=== PATIENT | male | born 1935 | race Caucasian/White ===

== ENCOUNTER 2018-05-13 14:34 | Outpatient (CLI) | payer MEDICARE ==
--- NOTE | 2018-05-13 16:43 | RAD ---
CHEST 2 VIEWS: Date: 05/13/18 COMPARISON: 02/06/17. HISTORY: Kidney cancer. COMPARISON: None. FINDINGS: Normal cardiac silhouette. Pulmonary vessels and hilum are normal. Costophrenic angles are clear. No consolidation or mass. No pneumothorax or osseous abnormalities. IMPRESSION: No acute cardiopulmonary process. POS: BETH
--- NOTE | 2018-05-13 16:45 | ULT ---
LEFT RENAL ULTRASOUND: Date: 05/13/18 HISTORY: Renal cancer. Right nephrectomy. COMPARISON: 01/27/17, 10/25/15, 10/22/14. TECHNIQUE: Sagittal and transverse imaging of the left kidney is performed. FINDINGS: Limited evaluation of the cortex. No obvious cortical masses. No definite hydronephrosis. Left kidney measures 6.3 x 5.2 x 10.5 cm. Urinary bladder has a normal mucosal appearance. Bladder volume is 38 mL. IMPRESSION: Status post right nephrectomy. No evidence of hydronephrosis in terms of the left kidney. No obvious masses. POS: BETH
== END 2018-05-13 14:35 | disposition home or self-care (01) ==
LOC: BICULT 14:34
PROVIDERS: ATTEND Urology
DX: C64.1 Malignant neoplasm of right kidney, except renal pelvis (principal); Z90.5 Acquired absence of kidney
CPT/HCPCS: 36415; 71046; 76775; 80048; 80076; 81003; 81015; 85025; 87086

== ENCOUNTER 2018-12-30 14:00 | Outpatient (CLI) | payer MEDICARE ==
--- NOTE | 2018-12-30 14:59 | ULT ---
US Renal Lt Unilateral History: Neoplasm of right kidney Comparison: Renal ultrasound April 2018 Findings: Real-time grayscale and color evaluation of the kidneys and urinary bladder was performed. Prior right nephrectomy. Urinary bladder is unremarkable. Left kidney is normal without mass, hydrone phrosis, or abnormal calcifications. Left kidney measures 120.4 x 6.2 x 6.5 cm. Impression: Unremarkable left kidney.
--- NOTE | 2018-12-30 15:00 | RAD ---
XR Chest Pa Lat STANDARD History: Malignant neoplasm of right kidney cc 64.1 Comparison: Radiograph 2018 Findings: Lungs are clear. Calcified granuloma left upper lobe and left lower lobe. No pneumothorax. No effusion. No acute osseous abnormality. Likely chronic Schmorl's node of the anterior superior endplate of what appears to be L1. Impression: No acute intrathoracic abnormality.
== END 2018-12-30 14:01 | disposition home or self-care (01) ==
LOC: BICULT 14:00
PROVIDERS: ATTEND Urology
DX: C64.1 Malignant neoplasm of right kidney, except renal pelvis (principal); R31.29 Other microscopic hematuria
CPT/HCPCS: 36415; 71046; 76775; 80053; 81001; 87077; 87086

== ENCOUNTER 2019-09-17 11:04 | Observation (INO) | payer MEDICARE ==
[2019-09-17 12:05] LABS: Bilirubin Negative (Negative); Blood, Urine 2+ (Negative); Clarity Clear (Clear); Glucose, Urine (Dipstick) Normal (Negative); Leukocyte Negative Leu/uL (Negative); Nitrite Negative (Negative); Protein, Urine (Dipstick) 300 mg/dL (Neg-Trace); RBC/HPF 0-3 HPF (0-3); Squamous Epithelial 0-3 HPF (0-3); Urobilinogen Normal mg/dL (Less than 2); WBC/HPF 0-3 HPF (0-3)
[2019-09-17 12:18] LABS: Bacteria/HPF Rare-Few HPF (None Seen)
[2019-09-17 12:19] LABS: #Eosinphils 0.1 thou/uL (0.0-0.7); #Lymphocytes 1.3 thou/uL (1.20-3.40); #Monocytes 0.6 thou/uL (0.11-0.59); #Neutrophils 6.5 thou/uL (1.40-6.50); %Basophils 0.4 % (0.0-1.0); %Eosinophils 0.6 % (0.0-10.0); %Lymphocytes 15.2 % (21.0-51.0); %Monocytes 6.8 % (0.0-10.0); Hemoglobin 12.3 g/dL (14.0-18.0); Mean Corpuscular HGB CONC 34.8 g/dL (32.0-36.0); Mean Corpuscular Hemoglobin 34.5 pg (27.0-31.0); Mean Corpuscular Volume 99.3 fL (78.0-98.0); Mean Platelet Volume 6.7 fL (7.4-10.4); Platelet Count 229 thou/uL (130-400); RBC Distribution Width 12.2 % (11.5-14.5); Red Blood Cell (RBC) Count 3.57 mill/uL (4.70-6.10); White Blood Cell (WBC) Count 8.4 thou/uL (4.8-10.8)
[2019-09-17 12:47] LABS: ALT (SGPT) 14 U/L (8-55); AST (SGOT) 20 U/L (5-34); Albumin 4.2 g/dL (3.4-4.8); Alkaline Phosphatase 89 U/L (40-110); Anion Gap 16 mmol/L (10-20); BUN (Urea Nitrogen) 56 mg/dL (8.4-25.7); Bilirubin, Total 0.4 mg/dL (0.2-1.2); Calc. Creatinine Clearance 0 mL/min (70-130); Calcium 9.3 mg/dL (7.8-10.44); Carbon Dioxide 18 mmol/L (23-31); Chloride 108 mmol/L (98-107); Estimated GFR-MDRD 15; Globulin 3.1 g/dL (2.4-3.5); Glucose 117 mg/dL (83-110); Potassium 5.4 mmol/L (3.5-5.1); Protein, Total 7.3 g/dL (5.8-8.1); Sodium 137 mmol/L (136-145)
[2019-09-17 13:05] LABS: CKMB 4.7 ng/mL (0-6.6)
[2019-09-17 13:08] LABS: Acetaminophen Less than 6.0 mcg/mL (10.0-30.0); Alcohol Less than 10 mg/dL (Less than 10); Salicylate Less than 8.0 mg/dL (15.0-30.0)
[2019-09-17] MEDS ORDERED: Multivitamins, Adult 10 ML, Thiamine HCl 100 MG, Folic Acid 1 MG in Dextrose 5 %-0.45 %... IV SCH (13:30)
[2019-09-17] MEDS ORDERED: HYDROcodone/Acetaminophen 5/325 mg Tablet ONE (13:46)
--- NOTE | 2019-09-17 13:58 | PDOC.FPRHP ---
- History of Present Illness Chief Complaint: Dysuria, urinary frequency History of Present Illness: PCP: None, CC 84 yo M presents for urinary frequency and ocassional dysuria. Pt has PMH of BPH prescribed flomax that he doesnt take regularly and sees urology OP. He also reports history of renal cell ca s/p nephrectomy, HTN that he irregularly takes norvasc for. Reports symptoms have been present for a week with increasing night time awakening and incomplete emptying sensation with weak stream. He denies hematuria, tea colored urine, fever, chills, DC, abdominal pain. Reports some intermittent NV last episode this am. He has significant alcohol history with reportedly consuming 1 gallon of scotch a week. ED Course: Pt received banana bag and mag sulfate in ED - Allergies/Adverse Reactions Allergies Allergy/AdvReac Type Severity Reaction Status Date / Time diazepam [From Valium] Allergy Severe Verified 09/17/19 15:41 morphine Allergy Verified 09/17/19 15:41 Sulfa (Sulfonamide Allergy Verified 09/17/19 15:41 Antibiotics) - Home Medications Medication Instructions Recorded Confirmed Type Amlodipine [Norvasc] 5 mg PO DAILY 01/18/17 09/17/19 History Tamsulosin HCl [Flomax] 0.4 mg PO DAILY 01/18/17 09/17/19 History cloNIDine HCl 0.2 mg PO DAILY PRN 01/18/17 09/17/19 History Folic Acid/Vit B Comp W-C 1 tab PO DAILY #30 tab 01/21/17 09/17/19 Rx [Nephro-Lisa] - History PMHx: BPH, Renal cell ca s/p nephrectomy, HTN, alcohol abuse PSHx: Nephrectomy FHx: Denies Social: Alcohol abuse 1 gallon of scotch weekly, denies drug and tobacco use - Review of Systems General: denies: fever/chills ENT: denies: nasal congestion, rhinorrhea Respiratory: denies: cough, congestion, shortness of breath Cardiovascular: denies: chest pain, edema Gastrointestinal: reports: nausea, vomiting. denies: diarrhea, constipation, abdominal pain, GI bleeding Genitourinary: reports: dysuria, other (See HPI). denies: incontinence Skin: denies: rashes Musculoskeletal: denies: pain, tenderness Neurological: denies: syncope - Vital signs BP: 187/73 HR: 69 RR: 18 Tmax: 97.8 Pox: 100% on ra Wt: 86Kg - Physical Exam Constitutional: NAD, awake, alert and oriented HEENT: normocephalic and atraumatic, PERRLA, EOMI, conjunctiva clear Neck: supple, trachea midline Heart: RRR, normal S1/S2, no murmurs/rubs/gallops, no edema Lungs: CTAB, no respiratory distress, good air movement, no rales/rhonchi, no wheezing Abdomen: soft, non-tender, bowel sounds present, no masses/distention Musculoskeletal: ROM grossly normal Neurological: no focal deficit Skin: good turgor, no jaundice Psychiatric: normal mood and affect FMR H&P: Results - Labs Result Diagrams: 09/17/19 12:10 09/17/19 12:10 Lab results: WBC 8.4 thou/uL (4.8-10.8) 09/17/19 12:10 Hgb 12.3 g/dL (14.0-18.0) L 09/17/19 12:10 Hct 35.5 % (42.0-52.0) L 09/17/19 12:10 MCV 99.3 fL (78.0-98.0) H 09/17/19 12:10 Plt Count 229 thou/uL (130-400) 09/17/19 12:10 Neutrophils % 77.0 % (42.0-75.0) H 09/17/19 12:10 Sodium 137 mmol/L (136-145) 09/17/19 12:10 Potassium 5.4 mmol/L (3.5-5.1) H 09/17/19 12:10 Chloride 108 mmol/L (98-107) H 09/17/19 12:10 Carbon Dioxide 18 mmol/L (23-31) L 09/17/19 12:10 BUN 56 mg/dL (8.4-25.7) H 09/17/19 12:10 Creatinine 3.83 mg/dL (0.7-1.3) H 09/17/19 12:10 Glucose 117 mg/dL (83-110) H 09/17/19 12:10 Calcium 9.3 mg/dL (7.8-10.44) 09/17/19 12:10 Total Bilirubin 0.4 mg/dL (0.2-1.2) 09/17/19 12:10 AST 20 U/L (5-34) 09/17/19 12:10 ALT 14 U/L (8-55) 09/17/19 12:10 Alkaline Phosphatase 89 U/L (40-110) 09/17/19 12:10 CK-MB (CK-2) 4.7 ng/mL (0-6.6) 09/17/19 12:10 Serum Total Protein 7.3 g/dL (5.8-8.1) 09/17/19 12:10 Albumin 4.2 g/dL (3.4-4.8) 09/17/19 12:10 Urine Ketones Negative mg/dL (Negative) 09/17/19 11:45 Urine Blood 2+ (Negative) A 09/17/19 11:45 Urine Nitrite Negative (Negative) 09/17/19 11:45 Ur Leukocyte Esterase Negative Anselmo/uL (Negative) 09/17/19 11:45 Urine RBC 0-3 HPF (0-3) 09/17/19 11:45 Urine WBC 0-3 HPF (0-3) 09/17/19 11:45 Ur Squamous Epith Cells 0-3 HPF (0-3) 09/17/19 11:45 Urine Bacteria Rare-Few HPF (None Seen) 09/17/19 11:45 - EKG Interpretation EKG: Junctional rhythm, normal rate, LAD, No ST or T wave changes - Radiology Interpretation US - abdomen Status: image reviewed by me Additional comment: Normal appearing kidney with normal ureteral jet and no bladder wall thickening or stone grossly visible, rads review pending FMR H&P: A/P - Problem List (1) Acute kidney injury superimposed on CKD Current Visit: Yes Status: Acute Code(s): N17.9 - ACUTE KIDNEY FAILURE, UNSPECIFIED; N18.9 - CHRONIC KIDNEY DISEASE, UNSPECIFIED (2) Elevated troponin Current Visit: No Status: Acute Code(s): R74.8 - ABNORMAL LEVELS OF OTHER SERUM ENZYMES (3) Alcohol abuse Current Visit: No Status: Chronic Code(s): F10.10 - ALCOHOL ABUSE, UNCOMPLICATED (4) BPH (benign prostatic hyperplasia) Current Visit: No Status: Chronic Code(s): N40.0 - BENIGN PROSTATIC HYPERPLASIA WITHOUT LOWER URINRY TRACT SYMP (5) Hyperkalemia Current Visit: Yes Status: Acute Code(s): E87.5 - HYPERKALEMIA (6) Elevated troponin Current Visit: Yes Status: Acute Code(s): R79.89 - OTHER SPECIFIED ABNORMAL FINDINGS OF BLOOD CHEMISTRY (7) Macrocytic anemia Current Visit: Yes Status: Acute Code(s): D53.9 - NUTRITIONAL ANEMIA, UNSPECIFIED - Plan 1) MAGUE on CKD - cre 3.82 increased from previous 2.7 - check ur protein/cr - check fena - gently IVF hydration - renal US reviewed and appears WNL, awaiting official radiologist read - monitor Is OS - no blood draws above wrist, consider am nephro consult - trend BMP - UA protein with amoprhous crystals, rare few bacteria, await cultures consider abx 2) Hyperkalemia: 2/2 above, kayexalate and trend 3) BPH: flomax daily 4) HTN: - cont home amlodipine and conidine prn 5) Alcohol abuse: ase with meds, clonazepam reaction not true allergy and more likley related to DTs than med reaction s/p banana bag, lr @ 125 6) Macrocytic anemia - check b12 folate 7) Elevated troponin: - trend PPX: Low dose lovenox and pepcid Dispo: stable, admit to tele obs and monitor renal function. Await further studies. FMR H&P: Upper Level - Plan Upper Level H&P see attending attestation
[2019-09-17] MEDS ORDERED: Ondansetron ODT 4 MG TAB PO PRN (15:38)
[2019-09-17] MEDS ORDERED: Ondansetron PF 4 MG/2 ML Vial IVP PRN (15:38)
[2019-09-17] MEDS ORDERED: Acetaminophen 325 MG TAB PO PRN (15:38)
--- NOTE | 2019-09-17 15:43 | HP ---
I have examined Mr. Sanchez and discussed his case with Dr. Demarcus Cristobal and agreed with his assessment and plan. HISTORY OF PRESENT ILLNESS: Mr. Sanchez is a pleasant 84-year-old white male patient, who came to the ER with his this afternoon. He has had at least several days of difficulty emptying his bladder associated with some urinary urgency, frequency, and 4 to 5 episodes of nocturia. He has had some slight dysuria, but no burning and no blood in his urine. He denies any fever or chills. Evidently, he also has a history of heavy ethanol use and drinks approximately a gallon of scotch per week. When I examined Mr. Sanchez this afternoon, he was pleasant, awake, alert, in no acute distress. He has also had several falls and feels lightheaded. He has a history of BPH, but I understand he is not willing to take or is not taking his Flomax. PHYSICAL EXAMINATION: VITAL SIGNS: His blood pressure is 187/77. His pulse rate is 69 and regular. Respirations are 18 and not labored. He is afebrile. His O2 saturation on room air is 100%. GENERAL: He is pleasant, alert, in no acute distress. EARS, NOSE, AND THROAT: No signs of trauma. No erythema or exudate. NECK: Supple. CARDIAC: Heart rhythm is regular without gallop or murmur. Heart sounds are distant. LUNGS: Diminished, but clear without rales or wheezes. No respiratory distress. ABDOMEN: Obese, but flat and soft without guarding, rebound, or rigidity. EXTREMITIES: No edema. NEUROLOGIC: No focal deficits. LABORATORY DATA: CBC; white count is 8400, hemoglobin is 12.3, hematocrit 35.5 with an MCV of 99.3. Platelet count and differential are normal. Chemistries; sodium 137, potassium 5.4, chloride 108, bicarb 18, BUN 56, creatinine 3.83. Liver enzymes are normal. Troponin is 0.049. ASSESSMENT: 1. Benign prostatic hypertrophy, symptomatic. 2. History of EtOH abuse. 3. Acute kidney injury, likely due to volume depletion. PLAN: We will admit the patient, place him on gentle IV fluids, monitor his kidney functions, start some Flomax, and touch base with his urologist. We will also monitor him for any signs of possible alcohol withdrawal. Job ID: [id number]
[2019-09-17] MEDS ORDERED: Diazepam 5 MG TAB PO PRN (15:47)
[2019-09-17] MEDS ORDERED: Thiamine HCl 200 MG/2 ML VIAL IM SCH (16:00)
[2019-09-17 16:25] LABS: Phosphorus 3.8 mg/dL (2.3-4.7)
[2019-09-17 16:27] LABS: Troponin I 0.062 ng/mL (< 0.028)
[2019-09-17] MEDS: hydrALAZINE 20 MG/ML VIAL SLOW IVP PRN (17:05)
[2019-09-17] MEDS: Lactated Ringer's 1,000 ML IV SCH (17:05)
[2019-09-17 17:07] LABS: Creatinine, Urine 109.41 mg/dL (63-166)
[2019-09-17] MEDS ORDERED: cloNIDine 0.2 MG TAB PO PRN (18:16)
[2019-09-17] MEDS ORDERED: cloNIDine 0.2 MG TAB PO SCH (19:00)
[2019-09-17 19:09] LABS: Troponin I 0.059 ng/mL (< 0.028)
--- NOTE | 2019-09-17 20:15 | ULT ---
Renal ultrasound: 09/17/2019 COMPARISON:12/30/2018 HISTORY:Urinary retention, hematuria, prior nephrectomy TECHNIQUE: Multiplanar grayscale sonographic imaging of the kidneys and urinary bladder obtained. FINDINGS: The right kidney is surgically absent. The left kidney voxkaowk63.1 x 6.6 x 6.1 cm and demo nstratesno hydronephrosis, stone, or mass lesion. The left kidney is echogenic suggesting renal medical disease, limiting detailed assessment. The urinary bladderappears grossly unremarkable. IMPRESSION:Status post right nephrectomy. No hydronephrosis on the left. Echogenic left kidney sugges t renal medical disease.
[2019-09-17] MEDS ORDERED: Tamsulosin HCl 0.4 MG CAP PO SCH (22:00)
[2019-09-17] MEDS ORDERED: Diazepam 5 MG TAB PO SCH (22:00)
[2019-09-18] MEDS: Lactated Ringer's 1,000 ML IV SCH ×3 (01:45→18:04)
[2019-09-18] MEDS ORDERED: Diazepam 5 MG TAB PO PRN (04:00)
[2019-09-18] MEDS ORDERED: Phenazopyridine HCl 97.5 MG TABLET PO SCH (04:30)
[2019-09-18 04:59] LABS: #Eosinphils 0.1 thou/uL (0.0-0.7); #Lymphocytes 1.9 thou/uL (1.20-3.40); #Monocytes 0.8 thou/uL (0.11-0.59); #Neutrophils 7.1 thou/uL (1.40-6.50); %Basophils 0.2 % (0.0-1.0); %Eosinophils 0.7 % (0.0-10.0); %Lymphocytes 18.8 % (21.0-51.0); %Monocytes 8.1 % (0.0-10.0); %Neutrophils 72.2 % (42.0-75.0); Hemoglobin 11.9 g/dL (14.0-18.0); Platelet Count 225 thou/uL (130-400); RBC Distribution Width 12.4 % (11.5-14.5); Red Blood Cell (RBC) Count 3.62 mill/uL (4.70-6.10); White Blood Cell (WBC) Count 9.9 thou/uL (4.8-10.8)
[2019-09-18 05:20] LABS: Anion Gap 16 mmol/L (10-20); BUN (Urea Nitrogen) 50 mg/dL (8.4-25.7); Calc. Creatinine Clearance 20 mL/min (70-130); Calcium 9.3 mg/dL (7.8-10.44); Carbon Dioxide 16 mmol/L (23-31); Chloride 109 mmol/L (98-107); Estimated GFR-MDRD 18; Glucose 102 mg/dL (83-110); Potassium 4.6 mmol/L (3.5-5.1); Sodium 136 mmol/L (136-145)
--- NOTE | 2019-09-18 05:52 | PDOC.FM ---
- Subjective Subjective: Patient doing okay this morning. Still having pain immediately before urination. Patient reports that the pain is mostly around the base of his penis , and that the pain improves when he starts to urinate. - Objective Vital Signs & Weight: Vital Signs (12 hours) Temp Pulse Resp BP BP Pulse Ox 09/18/19 04:45 168/81 H 09/18/19 04:29 185/87 H 09/18/19 03:54 97.3 F L 73 18 208/90 H 98 09/17/19 19:25 97.0 F L 75 18 143/63 H 97 09/17/19 19:03 176/72 H Weight Weight 86.296 kg I&O: 09/16/19 09/17/19 09/18/19 06:59 06:59 06:59 Intake Total 445 Output Total 0 Balance 445 Result Diagrams: 09/18/19 04:25 09/18/19 04:25 EKG Reviewed by me: Yes (sinus 70s) Phys Exam - Physical Examination Constitutional: NAD HEENT: moist MMs, sclera anicteric Neck: supple, full ROM Respiratory: no wheezing, clear to auscultation bilateral Cardiovascular: RRR, no significant murmur Gastrointestinal: soft, non-tender Musculoskeletal: no edema, pulses present Neurological: normal sensation, moves all 4 limbs Psychiatric: normal affect, A&O x 3 Deviation from normal: areas of actinic keratoses and nevi on scalp; senile purpura Dx/Plan (1) Acute kidney injury superimposed on CKD Code(s): N17.9 - ACUTE KIDNEY FAILURE, UNSPECIFIED; N18.9 - CHRONIC KIDNEY DISEASE, UNSPECIFIED Status: Acute (2) Elevated troponin Code(s): R79.89 - OTHER SPECIFIED ABNORMAL FINDINGS OF BLOOD CHEMISTRY Status : Acute (3) Hyperkalemia Code(s): E87.5 - HYPERKALEMIA Status: Acute (4) Macrocytic anemia Code(s): D53.9 - NUTRITIONAL ANEMIA, UNSPECIFIED Status: Acute (5) Elevated brain natriuretic peptide (BNP) level Code(s): R79.89 - OTHER SPECIFIED ABNORMAL FINDINGS OF BLOOD CHEMISTRY Status : Acute (6) Alcohol abuse Code(s): F10.10 - ALCOHOL ABUSE, UNCOMPLICATED Status: Chronic (7) BPH (benign prostatic hyperplasia) Code(s): N40.0 - BENIGN PROSTATIC HYPERPLASIA WITHOUT LOWER URINRY TRACT SYMP Status: Chronic (8) Elevated parathyroid hormone Code(s): E34.9 - ENDOCRINE DISORDER, UNSPECIFIED Status: Acute - Plan Plan: Patient is an 84M with PMHx of HTN, BPH, alcohol abuse admitted for: #MAGUE on CKD, improving - cre 3.82>3.34, GFR 18 - ur protein/cr elevated: 3.5 - fena 1.5%, intrinsic - continue IVF hydration - renal US: R nephrectomy, no L hydronephrosis, echogenic L kidney suggests renal disease - monitor I/O - no blood draws above wrist - continue to trend BMP - UA: protein with amorphous crystals, rare few bacteria - Urine cx pending - Nephro consult today, appreciate recs #Hyperkalemia, resolved -5.4> 4.6 #BPH #Pain with urination -flomax BID -urology consulted, appreciate recs #HTN: - increase home amlodipine - continue home clonidine prn #Alcohol abuse: -ase protocol -s/p banana bag, lr @ 125 #Macrocytic anemia -B12 wnl 685 -folate high 37 #Elevated troponin: - 0.04>0.062>0.059 -trended down #Elevated PTH -calcium and phos wnl -2/2 CKD vs vit D deficiency -25-hydroxyvit D low, will start vitamin D supp PPX: Low dose lovenox and pepcid Diet: HH Dispo: stable, continue to monitor renal function. Nephro consult this am, appreciate recs; urology consulted, appreciate recs Addendum - Attending - Attending Attestation Date/Time: 09/18/19 9516 I personally evaluated the patient and discussed the management with Dr. Villalobos I agree with the History, Examination, Assessment and Plan documented above with any addition or exceptions noted below. Patient with obstructive uropathy suspicious for prostrate carcinoma good urine outpt. Patient may have component intrinsic kidney disease as well. Continue ETOH withdrawal precautions ok supplement folate /thiamine po.
[2019-09-18] MEDS ORDERED: Tamsulosin HCl 0.4 MG CAP PO SCH (09:00)
[2019-09-18] MEDS ORDERED: Amlodipine 5 MG TAB PO SCH (09:00)
--- NOTE | 2019-09-18 09:17 | ULT ---
EXAM: Scrotal ultrasound with Doppler PROVIDED CLINICAL HISTORY: Right-sided hydrocele COMPARISON: None FINDINGS: Right testicle measures about 4.3 x 2.7 x 2.3 cm and demonstrates a normal grayscale sonographic appe arance. The right epididymis appears normal. There is a large simple appearing right hydrocele. Left testicle measures approximately 3.3 x 2.5 x 2.7 cm and demonstrates a normal grayscale sonograph ic appearance. Small epididymal head cysts are seen. No evidence for left-sided hydrocele. No evidence for varicocele. Color Doppler and spectral analysis of the testicular waveforms demonstra beto normal flow bilaterally. IMPRESSION: Large right hydrocele.
[2019-09-18] MEDS: Magnesium Oxide 400 MG TAB PO SCH (09:20)
[2019-09-18] MEDS: Thiamine 100 MG TAB PO SCH (09:20)
[2019-09-18] MEDS: Amlodipine 10 MG TAB PO SCH (09:20)
[2019-09-18] MEDS: Folic Acid 1 MG TAB PO SCH (09:21)
[2019-09-18] MEDS: Famotidine 20 MG TAB PO SCH (09:21)
[2019-09-18] MEDS: hydrALAZINE 20 MG/ML VIAL SLOW IVP PRN (09:21)
[2019-09-18] MEDS: Multivitamin W/ Minerals 1 TAB PO SCH (09:21)
[2019-09-18] MEDS: Enoxaparin Sodium 30 MG/0.3 ML SYRINGE SC SCH (09:21)
[2019-09-18] MEDS: Dutasteride 0.5 MG CAP PO SCH (09:26)
[2019-09-18] MEDS: Tamsulosin HCl 0.4 MG CAP PO SCH ×2 (09:26→20:26)
[2019-09-18] MEDS: Sodium Bicarbonate Tab 325 MG TAB PO SCH ×3 (09:26→20:26)
--- NOTE | 2019-09-18 09:26 | CON ---
DATE OF CONSULTATION: 09/18/2019 REASON FOR EVALUATION: Difficulty passing urine. HISTORY OF PRESENT ILLNESS: Mr. 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 He has history of chronic renal insufficiency, due to solitary left kidney. His kidney cancer has been in remission. I had last seen him in March 2019, long discussion with the patient and regarding abnormal digital rectal exam demonstrating nodularity diffusely firm. Given his advanced age, they have been fully informed regarding possibility of occult malignancy and did not desire workup for prostate cancer, i.e., biopsy given his advanced age and has been fully informed regarding possible occult malignancy in prevention. On our last visit, his PVR was minimal at 78 mL. He recently called our office per complaining that he has had difficulty urinating and weak. He was transitioned to the emergency room and a catheter was placed in the emergency room with 150 mL , which was not a true postvoid residual, as it was placed without asking the patient to void. Therefore, the catheter was not left in situ. Overnight, the bladder scan has been obtained by Primary Care, PVR variable from 150 to greater than 260 this am . Nurse did try to pass a coude, however, no urine output and subsequently, he passed more urine therefore was on observation. He states that he has had stranguria for the last few days, urinary dribbling. He is somewhat of a poor historian, also noted to be a heavy drinker, in which he drinks about 1.5 gallons of scotch per week. However, he is lucid and coherent , and cooperative to physical exam and denies seizures. Denies gross hematuria. PAST MEDICAL HISTORY: Include; 1. Hypertension. 2. Chronic back pain. 3. History of left lower extremity cellulitis. 4. Prior history of kidney stone. 5. History of pathologic T1 Jeffrey grade renal cell carcinoma of the right kidney. 6. BPH. 7. Chronic renal insufficiency. 8. Chronic alcohol use. PAST SURGICAL HISTORY: 1. L3-L4 diskectomy. 2. In November 2015, cysto, bilateral retrograde, bladder biopsy, right ureteroscopy, stent placement. 3. Right attempted robotic nephrectomy converted to total nephrectomy at [facility]. FAMILY HISTORY: Noncontributory. SOCIAL HISTORY: Nonsmoker. Heavy alcohol use, 1.5 gallons of scotch per weekly. ALLERGIES: ALLERGIC TO SULFA AND MORPHINE. REVIEW OF SYSTEMS: Ten-point review of systems as above, otherwise noncontributory. PHYSICAL EXAMINATION: VITAL SIGNS: Stable. He is afebrile. 270 of urine output. However, he has also been using urinal. GENERAL: The patient is an elderly frail male, cooperative to physical exam. He is oriented x3. HEENT: Grossly unremarkable. HEART: Regular rate. LUNGS: Clear. ABDOMEN: Soft. No rigidity. No rebound. GENITOURINARY AND RECTAL: I have asked him to void, however, unable. Uncircumcised meatus. Left testis is unremarkable. There appears to be a right hydrocele mildly tender on deep palpation with no erythema, induration, or fluctuance. JEANINE demonstrates diffusely nodular prostate, firm. EXTREMITIES: Bilateral pedal edema, 1 to 2+. NEUROLOGIC: No gross focal deficits per se. PSYCHIATRIC: Appears to be appropriate and intact. PERTINENT LABORATORY DATA: White count 9, hemoglobin 11, and platelet 225. Creatinine is 3.34. Baseline creatinine from 2 to 2.9. His liver enzymes on this admission grossly unremarkable. Alkaline phosphatase within normal limits. His UA; 300 protein, 2+ blood, 0 to 3 rbc's. Renal bladder ultrasound demonstrates bladder volume about 100 mL with ureteral jets seen. Left kidney consistent with medical renal disease. I did pass a regular 16-Welsh Bucio catheter without significant issues and 400 mL of postvoid residual was obtained. Of note, his prior CT prostate volume is about 40 g per my review. IMPRESSION AND PLAN: 1. Mr. 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 2. Chronic renal insufficiency, as above. 3. History of abnormal digital rectal exam. Previous long discussion with the patient and regarding his advanced age, did not desire to pursue prostate cancer workup. 4. He is currently admitted due to weakness, exacerbation of renal insufficiency , decreased oral intake resulting in worsening renal insufficiency. His previous PVR was not significant, his renal ultrasound does not demonstrate obvious PVR of concern. However, this morning on rounds, he has 400 mL of postvoid residual, therefore indwelling Bucio catheter was passed by me without significant issues. I will increase his Flomax to b.i.d., add Avodart. 5. abnormal digital rectal exam is concerning for occult malignancy, possibly contributing at this point to obstructive urinary symptoms. His PSA will be elevated as I recently passed a Bucio catheter. At a later date, I will recheck a PSA, scrotal ultrasound advised due to new-onset hydrocele. Pending his clinical course, will consider repeat voiding trial versus discharge with indwelling Bucio catheter for outpatient voiding trial and workup for possible occult malignancy versus observation, which I will discuss with his . Job ID: [id number] [id number]
--- NOTE | 2019-09-18 10:05 | CON ---
DATE OF CONSULTATION: HISTORY: Mr. Sanchez is an 84-year-old white male, who was admitted due to difficulty urinating. A Urology consult has been done. We are now being consulted for his acute kidney injury on top of his chronic renal failure. Please note, he is currently undergoing IV hydration. This morning, he is feeling better. REVIEW OF SYSTEMS: Positive for frequent falls. Positive for dizziness and lightheadedness. No chest pain. No shortness of breath. No nausea. No vomiting. No diarrhea. Positive for nocturia. Positive for urinary hesitancy. No abdominal pain. Appetite and energy level are decreased. No productive cough. No fever or chills. MEDICATIONS: The patient is currently on the following medicines. 1. Amlodipine 10 mg daily. 2. Clonidine 0.2 mg p.r.n. 3. Diazepam 5 mg q.4 p.r.n. 4. Dutasteride 0.5 mg daily. 5. Lovenox 30 mg subcu daily. 6. Famotidine 20 mg tablet daily. 7. Folic acid 1 mg once a day. 8. P.r.n. hydralazine. 9. Lactated Ringer's solution 125 mL/h. 10. Zofran p.r.n. 11. Tamsulosin 0.4 mg p.o. b.i.d. 12. Thiamine 100 mg once a day. PAST MEDICAL HISTORY: Renal carcinoma - in remission status post nephrolithiasis, chronic renal failure from hypertensive nephropathy, longstanding hypertension, BPH, and chronic low back pain. PAST SURGICAL HISTORY: Status post back surgery, status post bladder biopsy, status post cystoscopy, status post ureteral stent placement, and status post right nephrectomy. SOCIAL HISTORY: The patient lives in [place], 2 children, retired oil changer. Education, 7th grade. Chewing tobacco for 50 years. No history of smoking. Alcohol, occasional intake. No IV drug abuse. Status post blood transfusion. FAMILY HISTORY: No family history of ESRD. ALLERGIES: SULFA AND MORPHINE. TRAUMA: Status post crush injury in left leg. IMMUNIZATION: Up-to-date. PHYSICAL EXAMINATION: VITAL SIGNS: Blood pressure is noted at 195/85, heart rate 61, respiratory rate 16, temperature 98.4, and pulse ox 97%. GENERAL: The patient is awake, alert, comfortable, not in distress. SKIN: Adequate turgor. HEENT: He has pinkish conjunctivae. Anicteric sclerae. NECK: No neck mass. No carotid bruits. No JVD. CHEST: No deformities. LUNGS: Clear breath sounds. HEART: Normal sinus rhythm. No murmurs. No gallops. No rubs. ABDOMEN: Globular, soft, and nontender. No masses. EXTREMITIES: No edema. No deformities. NEUROLOGIC: Awake, somewhat confused, moving all extremities. No tremors. No asterixis. LABORATORY DATA: September 18, 2019; sodium 136, potassium 4.6, chloride 109, carbon dioxide 16, BUN 50, creatinine 3.34, GFR 18 mL/min, and calcium 9.3. BNP 509. September 17, 2019; creatinine 3.83. December 30, 2018, creatinine 2.79. September 17, 2019; renal ultrasound shows right nephrectomy. No hydronephrosis. Echogenic left kidney. ASSESSMENT AND PLAN: 1. Acute kidney injury on top of his chronic renal failure, superimposed prerenal azotemia. Continue current IV hydration. No indication for any dialytic intervention. Please note that the last creatinine on his clinic visit was about 2.81. 2. Chronic renal failure secondary to hypertensive nephropathy. Continue supportive care. 3. Renal carcinoma - the patient is status post right nephrectomy. The patient is in remission. 4. Overall agree with current management. We will recheck base met and CBC in a.m. Job ID: [id number]
[2019-09-18 12:34] VITALS: BMI 26.6
[2019-09-19] MEDS: Lactated Ringer's 1,000 ML IV SCH ×2 (01:14→08:36)
[2019-09-19 04:48] LABS: #Lymphocytes 1.3 thou/uL (1.20-3.40); #Monocytes 0.6 thou/uL (0.11-0.59); #Neutrophils 8.9 thou/uL (1.40-6.50); %Basophils 0.3 % (0.0-1.0); %Eosinophils 0.4 % (0.0-10.0); %Lymphocytes 11.9 % (21.0-51.0); %Monocytes 5.9 % (0.0-10.0); %Neutrophils 81.6 % (42.0-75.0); Hemoglobin 10.3 g/dL (14.0-18.0); Mean Corpuscular HGB CONC 34.4 g/dL (32.0-36.0); Mean Corpuscular Hemoglobin 34.3 pg (27.0-31.0); Mean Corpuscular Volume 99.9 fL (78.0-98.0); Mean Platelet Volume 6.9 fL (7.4-10.4); Platelet Count 188 thou/uL (130-400); RBC Distribution Width 12.1 % (11.5-14.5); Red Blood Cell (RBC) Count 2.99 mill/uL (4.70-6.10); White Blood Cell (WBC) Count 10.9 thou/uL (4.8-10.8)
[2019-09-19 05:10] LABS: Anion Gap 13 mmol/L (10-20); BUN (Urea Nitrogen) 42 mg/dL (8.4-25.7); Calc. Creatinine Clearance 23 mL/min (70-130); Calcium 8.5 mg/dL (7.8-10.44); Carbon Dioxide 17 mmol/L (23-31); Chloride 109 mmol/L (98-107); Estimated GFR-MDRD 21; Glucose 112 mg/dL (83-110); Potassium 3.8 mmol/L (3.5-5.1); Sodium 135 mmol/L (136-145)
--- NOTE | 2019-09-19 05:55 | PDOC.FM ---
- Subjective Subjective: Patient doing well this am. Reports that the lunsford has significantly improve his pain. - Objective Vital Signs & Weight: Vital Signs (12 hours) Temp Pulse Resp BP Pulse Ox 09/19/19 03:40 97.8 F 70 16 165/74 H 96 09/18/19 19:05 98.1 F 71 18 158/70 H 97 Weight Admit Weight 86.296 kg Weight 86.664 kg I&O: 09/17/19 09/18/19 09/19/19 06:59 06:59 06:59 Intake Total 2185 2319 Output Total 270 600 Balance 1915 1719 Result Diagrams: 09/19/19 04:22 09/19/19 04:22 EKG Reviewed by me: Yes (sinus 60s-80s) Phys Exam - Physical Examination Constitutional: NAD HEENT: moist MMs, sclera anicteric Neck: supple, full ROM Respiratory: no wheezing, clear to auscultation bilateral Cardiovascular: RRR, no significant murmur Gastrointestinal: soft, non-tender Musculoskeletal: no edema, pulses present Neurological: non-focal, moves all 4 limbs Psychiatric: normal affect, A&O x 3 Deviation from normal: senile purpura, actinic keratoses on scalp Dx/Plan (1) Acute kidney injury superimposed on CKD Code(s): N17.9 - ACUTE KIDNEY FAILURE, UNSPECIFIED; N18.9 - CHRONIC KIDNEY DISEASE, UNSPECIFIED Status: Acute (2) Elevated troponin Code(s): R79.89 - OTHER SPECIFIED ABNORMAL FINDINGS OF BLOOD CHEMISTRY Status : Acute (3) Hyperkalemia Code(s): E87.5 - HYPERKALEMIA Status: Acute (4) Macrocytic anemia Code(s): D53.9 - NUTRITIONAL ANEMIA, UNSPECIFIED Status: Acute (5) Elevated brain natriuretic peptide (BNP) level Code(s): R79.89 - OTHER SPECIFIED ABNORMAL FINDINGS OF BLOOD CHEMISTRY Status : Acute (6) Alcohol abuse Code(s): F10.10 - ALCOHOL ABUSE, UNCOMPLICATED Status: Chronic (7) BPH (benign prostatic hyperplasia) Code(s): N40.0 - BENIGN PROSTATIC HYPERPLASIA WITHOUT LOWER URINRY TRACT SYMP Status: Chronic (8) Elevated parathyroid hormone Code(s): E34.9 - ENDOCRINE DISORDER, UNSPECIFIED Status: Acute (9) Leukocytosis Code(s): D72.829 - ELEVATED WHITE BLOOD CELL COUNT, UNSPECIFIED Status: Acute - Plan Plan: Patient is an 84M with PMHx of HTN, BPH, alcohol abuse admitted for: #MAGUE on 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 Lucas rec continued monitoring with lunsford catheter, appreciate recs #Hyperkalemia, resolved -5.4> 4.6 > 3.8 #BPH #Pain with urination -flomax BID, avodart -urology consulted, Dr. Lakhani, rec d/c with indwelling catheter and trial outpatient #Leukocytosis -WBC 10.9 with 81.2% neutrophils; patient has been afebrile, urine cx NGTD -possibly 2/2 stress reaction, will continue to monitor #Metabolic acidosis -likely 2/2 CKD -bicarb 16>17 -Dr Lucas started sodium bicarb TID -continue to monitor #HTN: - increase home amlodipine - continue home clonidine prn #Alcohol abuse: -ase protocol -s/p banana bag, lr @ 125 #Macrocytic anemia -B12 wnl 685 -folate high 37 #Elevated troponin: - 0.04>0.062>0.059 -trended down #Elevated PTH -calcium and phos wnl -2/2 CKD -25-hydroxyvit D low, will start vitamin D supp #Hx of abnormal JEANINE -Per Dr. Lakhani's notes, patient has had a hx of abnormal JEANINE in the past; has recommended workup outpatient PPX: Low dose lovenox and pepcid Diet: HH Dispo: stable, will d/c today with lunsford and f/u outpatient with urology for voiding trial Addendum - Attending - Attending Attestation Date/Time: 09/19/19 8065 I personally evaluated the patient and discussed the management with Dr. Villalobos I agree with the History, Examination, Assessment and Plan documented above with any addition or exceptions noted below. Discharge plans reviewed with and patient. Patient with lunsford and Urology f/u as outpatient. Patient need improved BP control and this will be further managed as outpatient. Patient counseled regard risk continued alcohol use.
--- NOTE | 2019-09-19 08:01 | PRG ---
DATE OF SERVICE: 09/19/2019 SUBJECTIVE: Feeling better. Denies nausea, vomiting, or chills. OBJECTIVE: VITAL SIGNS: Stable. Temperature 97, pulse 70, respirations 16, saturations 96, and blood pressure 165/74. I's and O's 4389 in and 600 out. Oral intake 1.5 L. ABDOMEN: Soft, nontender, and nondistended. : Right hydrocele. Bucio catheter draining dilute urine. PERTINENT LABORATORY DATA: White count 10, hemoglobin 10, and platelets 183. Creatinine stable at 2.86 and potassium 3.8. UA demonstrates no pyuria of concern. Culture preliminary negative. IMPRESSION AND PLAN: 1. Mr. Sanchez is an 84-year-old male with history of right nephrectomy, clear cell renal cell carcinoma in remission. 2. History of chronic renal insufficiency secondary to above. 3. History of benign prostatic hypertrophy, mild. No prior history of urinary retention. 4. Currently admitted with PVR 400 mL, in which indwelling Bucio catheter was passed without difficulty. He is tolerating Bucio without significant issues and I informed him that he will be discharged with indwelling Bucio catheter for an outpatient voiding trial. Flomax increased to b.i.d., Avodart added on this admission. 5. History of abnormal digital rectal exam: We have previously discussed his abnormal digital rectal exam. Given his advanced age, they desired clinical observation, which is reasonable given his advanced age. However, I cannot completely exclude occult prostate cancer resulting in anatomical obstruction, resulting his elevated PVR. He will return to clinic next week for a voiding trial. Idiscuss with the patient re workup. , PSA, possible biopsy, cystoscopy if concern regarding persistent urinary retention due to cancer. His LFTs are grossly unremarkable with no significant increase in alkaline phosphatase, less suspicious for metastatic disease. patient informed. From my perspective, he can be discharged today with indwelling Bucio catheter. Please send him home with Flomax b.i.d. and Avodart. Appointment September 23 in chart. [facility] covering me for p.r.n. issues if the patient still remains in-house over the weekend. Job ID: [id number] MTDD
[2019-09-19] MEDS: Amlodipine 10 MG TAB PO SCH (08:36)
[2019-09-19] MEDS: Tamsulosin HCl 0.4 MG CAP PO SCH (08:37)
[2019-09-19] MEDS: Folic Acid 1 MG TAB PO SCH (08:37)
[2019-09-19] MEDS: Magnesium Oxide 400 MG TAB PO SCH (08:37)
[2019-09-19] MEDS: Sodium Bicarbonate Tab 325 MG TAB PO SCH (08:37)
[2019-09-19] MEDS: Famotidine 20 MG TAB PO SCH (08:37)
[2019-09-19] MEDS: Thiamine 100 MG TAB PO SCH (08:37)
[2019-09-19] MEDS: Dutasteride 0.5 MG CAP PO SCH (08:37)
[2019-09-19] MEDS: Multivitamin W/ Minerals 1 TAB PO SCH (08:37)
[2019-09-19] MEDS: Enoxaparin Sodium 30 MG/0.3 ML SYRINGE SC SCH (08:37)
--- NOTE | 2019-09-19 09:25 | PRG ---
DATE OF SERVICE: 09/19/2019 SUBJECTIVE: Mr. Sanchez is an 84-year-old white male, who was seen by the Renal Service for his acute kidney injury on top of his chronic renal failure. He had a superimposed hemodynamically-mediated dysfunction. It is much improved with IV hydration. He was also seen by Urology for his difficulty to pass his urine secondary to possible BPH/prostate carcinoma. No new complaints today. OBJECTIVE: VITAL SIGNS: Blood pressure is 166/77, heart rate 78, respiratory rate 20, pulse ox 96%, and temperature 97.8. GENERAL: Awake, alert, and comfortable, not in distress. SKIN: Adequate turgor. HEENT: He has a pinkish conjunctivae. Anicteric sclerae. NECK: No neck mass. No carotid bruits. No JVD. LUNGS: Clear breath sounds. No wheezing. No crackles. HEART: Normal sinus rhythm. No murmurs. No gallops. No rubs. ABDOMEN: Globular, soft, and nontender. No masses. EXTREMITIES: No edema. No deformities. MEDICATIONS: Medications of September 19, 2019, was reviewed. LABORATORY DATA: Laboratories of September 19, 2019, white count 10.9 and hemoglobin 10.3. Sodium 135, potassium 3.8, chloride 109, carbon dioxide 17, BUN 42, creatinine 2.86, and calcium is 8.5. ASSESSMENT AND PLAN: 1. Acute kidney injury - hemodynamically-mediated dysfunction. Much improved with IV hydration. Continue current management. No indication for any dialytic intervention. 2. Chronic renal failure secondary to a presumed hypertensive nephropathy. Continue supportive care. No dialysis. The patient will have a followup with Urology as an outpatient. Overall, agree with current management. Please note, his renal function is back to baseline. Agree with current management. Job ID: [id number]
[2019-09-19 12:21] VITALS: BP 160/72; TEMP 98.2
--- NOTE | 2019-09-22 15:12 | DIS ---
DATE OF ADMISSION: 09/17/2019 DATE OF DISCHARGE: 09/19/2019 ADMITTING RESIDENT: Demarcus Cristobal DO ADMITTING ATTENDING: Adi Olivares MD DISCHARGE RESIDENT: Mary Ellen Villalobos MD DISCHARGE ATTENDING: Jesu Hester MD CONSULTATIONS: 1. Urology (Dr. Lakhani). 2. Nephrology (Dr. Lucas). PROCEDURES: Bucio catheter. IMAGIN. Renal ultrasound: Status post right nephrectomy. No hydronephrosis in the left. Echogenic left kidney suggest renal medical disease. 2. Testicular ultrasound, large right hydrocele. PRIMARY DIAGNOSES: 1. Acute kidney injury on chronic kidney disease due to hypertensive nephropathy. 2. Hyperkalemia. 3. Urinary retention. 4. Metabolic acidosis. 5. Leukocytosis. 6. Macrocytic anemia. 7. Elevated troponin. 8. Elevated parathyroid hormone. SECONDARY DIAGNOSES: 1. Benign prostatic hypertrophy. 2. Hypertension. 3. Alcohol abuse. 4. History of abnormal digit rectal exam. HISTORY OF PRESENT ILLNESS/HOSPITAL COURSE: The patient is an 84-year-old male with a past medical history of hypertension, BPH, history of renal cell carcinoma status post nephrectomy who presented to the ER for urinary frequency and occasional dysuria. He had a past medical history of BPH that he was prescribed Flomax for , but he does not take regularly. He reported that for the last several days when he had to urinate, he did have pain around the base of his penis, right before urination, and he also endorsed hematuria with tea-colored urine, fever, chills , and some intermittent nausea and vomiting. He was admitted to the hospital where he continued to have difficulty with urination and required in and out catheters for him to be able to relieve his urinary retention. Urology was consulted, Dr. Lakhani and she recommended placement of a Bucio and started him on Flomax b.i.d. and Avodart. She does follow the patient outpatient and recommended that the patient go home with a Bucio and he can try a voiding trial outpatient. She also noted that he does have a history of an abnormal digital rectal exam that she had previously discussed this with both the patient and his , after which they both decided to have clinical observation due to his advanced age. She noted that when he returns to clinic for the voiding trial she will continue to discuss the workup of the abnormal JEANINE, which could possibly be an occult prostate cancer that is contributing to an anatomical urinary obstruction. Dr. Lucas also consulted on the patient and started the patient on sodium bicarb and was happy with the improvement of his kidney function after the Bucio was placed. He agreed with the plan of care and recommended that the patient followup with Urology outpatient. The patient was also found to have hyperkalemia when he was first admitted to the hospital, but since resolved by the day of discharge and this was likely due to obstruction. He was also found to have leukocytosis slightly with a white count of 10.9. His urine was negative, so this was thought to be due to a stress reaction. He was also found to have metabolic acidosis and Dr. Lucas started him on p.o. sodium bicarb that was continued upon discharge. He was found to have macrocytic anemia, but his B12 was within normal limits and his folate was high at 37. He was also found to have a slightly elevated troponin on admission that trended down without ever reaching an NSTEMI status. The patient was also found to have an elevated PTH on admission, which was consistent with his chronic kidney disease. The patient was evaluated on the day of discharge and found to be in stable condition. It was discussed with the patient and his that he is to go home with his Bucio catheter in place and to follow up with Urology outpatient for voiding trial and further discussion about his prostate and urinary retention. The patient and his were agreeable with the current plan of care. DISCHARGE MEDICATIONS: 1. 10 mg amlodipine p.o. daily. 2. 1000 units vitamin D3 p.o. daily. 3. 0.2 mg clonidine p.o. daily. 4. 0.5 mg Avodart p.o. daily. 5. One tablet folic acid/B complex p.o. daily. 6. One multivitamin p.o. daily. 7. 650 mg sodium bicarb p.o. t.i.d. 8. 0.4 mg Flomax p.o. b.i.d. DISCONTINUED MEDICATIONS: 1. Tylenol p.r.n. 2. Valium p.r.n. 3. Lovenox. 4. Pepcid. 5. Hydralazine p.r.n. 6. Magnesium oxide. DISPOSITION: Stable. DISCHARGE INSTRUCTIONS: 1. Location: Home. 2. Diet: Heart healthy, renal diet. 3. Activity: As tolerated. 4. Follow up with outside PCP within 7 days and with Urology, Dr. Lakhani on September 23 at 1:30 p.m. Job ID: [id number] MTDIsaac
== END 2019-09-19 13:20 | disposition home or self-care (01) ==
LOC: ERS 11:04 → INTOOBSV 13:51 → 2NO 13:51
PROVIDERS: ADMIT Family Medicine; ATTEND Family Medicine
DX: I12.9 Hypertensive chronic kidney disease with stage 1 through stage 4 chronic kidney disease, or unspecified chronic kidney disease (principal); N18.9 Chronic kidney disease, unspecified; N17.9 Acute kidney failure, unspecified; D63.1 Anemia in chronic kidney disease; E87.5 Hyperkalemia; N40.1 Benign prostatic hyperplasia with lower urinary tract symptoms; R33.8 Other retention of urine; R35.0 Frequency of micturition; R39.15 Urgency of urination; E87.2 Acidosis; F10.10 Alcohol abuse, uncomplicated; Z79.899 Other long term (current) drug therapy; Z87.891 Personal history of nicotine dependence; Z88.2 Allergy status to sulfonamides; Z88.5 Allergy status to narcotic agent; Z88.8 Allergy status to other drugs, medicaments and biological substances
CPT/HCPCS: 51701; 51702; 76770; 76870; 80048 ×2; 80053; 80307; 82306; 82553; 82570; 82607; 82746; 83690; 83880; 83970; 84100; 84156; 84300; 84484 ×2; 85025 ×3; 87086; 93005; 96361 ×2; 96365; 96372 ×2; 96375; 99285; G0378 ×3; 36415; 36416; 51798; 81003; 81015; J0360; J1650; J3411; J3475; J3490; J7042

== ENCOUNTER 2019-10-17 10:12 | Outpatient (CLI) | payer MEDICARE ==
--- NOTE | 2019-10-17 12:58 | CT ---
CT STONE PROTOCOL: HISTORY: Difficulty urinating, abnormal digital rectal exam. Malignant neoplasm of right kidney, extrarenal p joycelyn. Chronic kidney disease, unspecified. COMPARISON: 10/07/2013. FINDINGS: Absence of oral and IV contrast reduces the sensitivity of the exam, particularly for evaluation of s olid organs involved. The 5 mm peripheral nodule in the right lower lobe is stable. Tiny peripheral nodule in the left lower lobe is also stable. There are calcified granulomas in the liver and splee n. No calcified gallstones are present. The patient is post right nephrectomy. No calculi are seen in the left kidney, left ureter, or the urinary bladder. No hydroureteral nephrosis is seen on the left. The prostate is enlarged. There is colonic diverticulosis. There is a suggestion of thickeni ng of the wall of the rectum. There are degenerative changes in the spine. There are multiple new sclerotic foci in the spine, pel vis, and left proximal femur. Multiple prominent few mildly enlarged lymph nodes have developed in t he interim in the retroperitoneum measuring up to 1 cm. Bilaterally enlarged external iliac lymph no rachid are present. IMPRESSION: 1. Status post right nephrectomy. 2. No left-sided urinary tract calculi or obstruction. 3. Prostatic enlargement. 4. Colonic diverticulosis. 5. Findings suspicious for sclerotic osseous metastatic disease. 6. Thickening of the wall of the rectum. Further evaluation with colonoscopy is recommended. 7. Mild retroperitoneal lymphadenopathy. 8. Bilateral external iliac lymphadenopathy. POS: [facility]
--- NOTE | 2019-10-17 14:32 | NM ---
WHOLE BODY BONE SCAN: HISTORY: Malignant neoplasm of the right kidney, except renal pelvis. Chronic kidney disease, unspeci fied. Abnormal digital rectal exam. Elevated PSA of 167. RADIOPHARMACEUTICAL: 31 mCi technetium 99m-MDP injected intravenously COMPARISON: None CORRELATION: CT Stone protocol from same date FINDINGS: Increased uptake in the shoulders, elbows, wrists, knees, ankles is consistent with degenerative flores ges. There are multiple foci of increased uptake in the thoracolumbar spine, sacrum and right iliac bones. Some of these lesions correspond to the findings on the CT scan and are consistent with osseous metastatic disease. There are couple of tiny foci of increased uptake in the posterior medial aspects of the right seventh and left fifth ribs which are also suspicious findings. Tracer excretion through the kidneys is within normal limits. IMPRESSION: Findings are consistent with osseous metastatic disease.
== END 2019-10-17 10:13 | disposition home or self-care (01) ==
LOC: CT 10:12
PROVIDERS: ATTEND Urology
DX: R68.89 Other general symptoms and signs (principal); C64.1 Malignant neoplasm of right kidney, except renal pelvis; N18.9 Chronic kidney disease, unspecified; R31.29 Other microscopic hematuria; N40.1 Benign prostatic hyperplasia with lower urinary tract symptoms; R33.9 Retention of urine, unspecified; K57.92 Diverticulitis of intestine, part unspecified, without perforation or abscess without bleeding; R59.1 Generalized enlarged lymph nodes
CPT/HCPCS: 74176; 78306; 80053; 81001; 87086; A9503

== ENCOUNTER 2020-05-07 06:59 | Outpatient (CLI) | payer MEDICARE, OTHER ==
[2020-05-07 13:50] LABS: PTT 29.3 sec (22.9-36.1); Prothrombin Time 13.4 sec (12.0-14.7)
[2020-05-07 14:01] LABS: Hemoglobin 10.9 g/dL (14.0-18.0); Mean Corpuscular HGB CONC 34.7 g/dL (32.0-36.0); Mean Corpuscular Hemoglobin 35.7 pg (27.0-31.0); Mean Platelet Volume 7.4 fL (7.4-10.4); Platelet Count 145 thou/uL (130-400); RBC Distribution Width 14.2 % (11.5-14.5); Red Blood Cell (RBC) Count 3.05 mill/uL (4.70-6.10); White Blood Cell (WBC) Count 6.4 thou/uL (4.8-10.8)
[2020-05-07 14:32] LABS: Anion Gap 16 mmol/L (10-20); BUN (Urea Nitrogen) 77 mg/dL (8.4-25.7); Calc. Creatinine Clearance 0 mL/min (70-130); Calcium 6.7 mg/dL (7.8-10.44); Carbon Dioxide 13 mmol/L (23-31); Chloride 114 mmol/L (98-107); Estimated GFR-MDRD 14; Glucose 109 mg/dL (83-110); Potassium 4.4 mmol/L (3.5-5.1); Sodium 139 mmol/L (136-145)
[2020-05-07 16:29] LABS: Bacteria/HPF None Seen HPF (None Seen); Bilirubin Negative (Negative); Blood, Urine Trace (Negative); Clarity Clear (Clear); Glucose, Urine (Dipstick) Normal (Negative); Ketone, Urine Negative (Negative); Leukocyte Negative Leu/uL (Negative); Nitrite Negative (Negative); Protein, Urine (Dipstick) 200 mg/dL (Neg-Trace); RBC/HPF 0-3 HPF (0-3); Specific Gravity, Urine 1.014 (1.002-1.036); Squamous Epithelial 0-3 HPF (0-3); Urobilinogen Normal mg/dL (Less than 2); WBC/HPF 0-3 HPF (0-3); pH, Urine 5.5 (5.0-9.0)
[2020-05-08 12:05] LABS: SARS-CoV-2 MS2 Positive; SARS-CoV-2 N Gene Negative; SARS-CoV-2 S Gene Negative; SARS-CoV-2 by NAA Not Detected (NotDetected); SARS-CoV-2 orf1ab Negative
--- NOTE | 2020-05-14 13:20 | EKG ---
Test Reason : PREOP Blood Pressure : / mmHG Vent. Rate : 070 BPM Atrial Rate : 070 BPM P-R Int : 180 ms QRS Dur : 080 ms QT Int : 428 ms P-R-T Axes : 079 -43 072 degrees QTc Int : 462 ms Normal sinus rhythm Left axis deviation Abnormal ECG No previous ECGs available Confirmed by DR. Nataly ERICKSON ([id number]) on 05/14/2020 1:19:52 PM Referred By: Arina CISNEROS Confirmed By:DR. Nataly ERICKSON
== END 2020-05-07 07:00 | disposition home or self-care (01) ==
LOC: LABBT 06:59
PROVIDERS: ATTEND Urology
DX: Z01.818 Encounter for other preprocedural examination (principal); Z20.828 Contact with and (suspected) exposure to other viral communicable diseases; C64.1 Malignant neoplasm of right kidney, except renal pelvis; C79.82 Secondary malignant neoplasm of genital organs; R97.20 Elevated prostate specific antigen [PSA]; R68.89 Other general symptoms and signs; N18.9 Chronic kidney disease, unspecified; R31.29 Other microscopic hematuria; F10.20 Alcohol dependence, uncomplicated; R33.9 Retention of urine, unspecified; N43.3 Hydrocele, unspecified; R91.1 Solitary pulmonary nodule; N39.41 Urge incontinence; Z87.442 Personal history of urinary calculi
CPT/HCPCS: 80048; 81001; 85027; 85610; 85730; 87086; 93005; U0003; 87635; 93010

== ENCOUNTER 2020-05-12 08:56 | Day surgery (SDC) | payer MEDICARE ==
[2020-05-11 08:42] VITALS: BMI 24.4
[2020-05-12] MEDS ORDERED: Lidocaine 1% PF 5 ML VIAL ONE (09:26)
[2020-05-12] MEDS ORDERED: Dexamethasone 20 MG/5 ML VIAL ONE (09:26)
[2020-05-12] MEDS ORDERED: EPHEDRINE 25 MG/5 ML SYRINGE ONE (09:26)
[2020-05-12] MEDS ORDERED: PROPOFOL 200 MG/20 ML VIAL ONE (09:26)
[2020-05-12] MEDS ORDERED: Ondansetron PF 4 MG/2 ML Vial ONE (09:26)
[2020-05-12] MEDS ORDERED: Fentanyl 100 MCG/2 ML VIAL ONE (11:40)
[2020-05-12] MEDS ORDERED: Bacitracin Zinc Ointment 30 gm TUBE ONE (11:54)
[2020-05-12] MEDS ORDERED: Gentamicin 80 MG/2 ML VIAL ONE (11:54)
[2020-05-12] MEDS ORDERED: Bupivacaine 0.25% HCL 30 ML VIAL ONE (11:54)
--- NOTE | 2020-05-13 14:16 | OP ---
DATE OF PROCEDURE: 05/12/2020 Please note that this is an operative report, repeat operative report being performed as his prior operative records were mislabeled this consultation. PREOPERATIVE DIAGNOSES: 1. An 85-year-old male with metastatic prostate cancer. 2. Right hydrocele. POSTOPERATIVE DIAGNOSES: 1. An 85-year-old male with metastatic prostate cancer. 2. Right hydrocele. PROCEDURES PERFORMED: Bilateral orchiectomy, simple. Right hydrocelectomy. ANESTHESIA: General. COMPLICATIONS: None apparent. ESTIMATED BLOOD LOSS: Minimal. DRAINS: Quarter-inch [place] bilateral scrotum x1. ESTIMATED BLOOD LOSS: Minimal. SPECIMEN: Bilateral testes, right hydrocele sac. INDICATIONS FOR PROCEDURE AND HISTORY: Mr. Sanchez is an 85-year-old male with history of metastatic prostate cancer, has been undergoing Lupron injection therapy and would like to transition to bilateral simple orchiectomy as he has bothersome hydrocele. Risks and complications of the procedure were reviewed with him in detail including, but not limited to, bleeding, pain, infection, injury to adjacent organs, chronic pain, scrotal hematoma, wound infection, dehiscence. All questions were answered to his satisfaction and desired to proceed. Alternatives of the procedure including ongoing Lupron therapy also reviewed. Desires to proceed with surgical castration. DESCRIPTION OF PROCEDURE: After an informed consent was signed, the patient was taken to the operating room, placed in a supine position with the genital scrotal area prepped and draped in the usual surgical sterile fashion. A midline mid scrotal incision was made with a 15 blade down the dartos fascia to the limits of skin incision bilaterally. We proceeded to treat the right hydrocele component first, which was a size of a large orange. The right hydrocele sac was bluntly and sharply dissected to the level of the external ring. The entire cord structures were ligated at the level of the external ring. A 0 silk suture tie was placed at the most proximal stump, and his cord was subsequently divided in two and suture ligated with 2-0 silk ties. Excellent hemostasis was obtained. Similar dissection was performed on the left side. The left testicle demonstrates mild atrophy. The left hemiscrotum was entered through the mid scrotal incision. The cord structures were again identified to the level of the external ring, and similar maneuver was performed to ligate the left cord structures. A quarter-inch [place] was placed to the septum of the scrotum traversing both hemiscrotum and sutured to skin bilaterally using 3-0 nylon. Pressure dressing was applied, and he tolerated the procedure. A midline scrotal incision was then closed with 2-0 Vicryl in a vertical mattress fashion. He tolerated the procedure well and was transported to the recovery room in stable condition. Job ID: [id number]
--- NOTE | 2020-05-15 13:22 | CON ---
DATE OF Surgery 05/12/2020 PREOPERATIVE DIAGNOSES: 1. An 85-year-old male with metastatic prostate cancer. 2. Right hydrocele. POSTOPERATIVE DIAGNOSES: 1. An 85-year-old male with metastatic prostate cancer. 2. Right hydrocele. PROCEDURES PERFORMED: Bilateral orchiectomy, simple. Right hydrocelectomy. ANESTHESIA: General. COMPLICATIONS: None apparent. ESTIMATED BLOOD LOSS: Minimal. DRAINS: Quarter-inch [place] to bilateral scrotum, one continuous tube. EBL: Minimal. SPECIMENS: Bilateral testes, right hydrocele sac. INDICATIONS FOR PROCEDURE AND HISTORY: Mr. Sanchez is an 85-year-old male with history of prostate cancer, metastatic, and he has been undergoing Lupron injection therapy. As he has symptomatic hydrocele, he requires to continue androgen deprivation therapy. He has chosen and elected to proceed with bilateral simple orchiectomy, concomitant right hydrocelectomy. Risks and complications of the procedures have been discussed with him in detail including, but not limited to, bleeding, pain, infection, injury to adjacent organs, chronic pain, scrotal hematoma, wound infection. All questions answered to his satisfaction and desired to proceed. DESCRIPTION OF PROCEDURE: After an informed consent was signed, the patient was taken to the operating room, placed in supine position, and the genital area was formally prepped and draped. A midline mid scrotal incision was made with a 15 blade. The dartos fascia was opened to the limits of skin incision bilaterally. We proceeded to treat the right hydrocele component 1st, which was about the size of a large orange. The right hydrocele sac was delivered through the scrotal incision. We dissected the hydrocele sac, mobilizing the entire cord up to the level of the external ring. The right cord stump was doubly ligated. Using 0 silk suture tie, this was ligated at the most proximal stump and his cord was subsequently divided in 2 and suture ligated with 2-0 silk ties. Good hemostasis was obtained. At this time, we then proceeded to the left hemiscrotum through the same incision. Left testicle was delivered and again, the cord structures were divided in similar fashion as the contralateral side. Meticulous hemostasis was obtained, cauterizing intermittent areas that required. A quarter-inch [place] was placed through the septum of the scrotum, traversing both hemiscrotum and sutured to skin bilaterally using 3-0 nylon. Pressure dressing was applied, and he tolerated the procedure well. The midline scrotal incision was closed with 2-0 Vicryl in a vertical mattress fashion. The patient just transported to the recovery room in stable condition. Job ID: [id number] [facility]
== END 2020-05-12 16:15 | disposition home or self-care (01) ==
LOC: SDC 08:56
PROVIDERS: ATTEND Urology
PROC: 0VB60ZZ Excision of Right Tunica Vaginalis, Open Approach (ICD-10-PCS; principal; 2020-05-12)
PROC: 0VTC0ZZ Resection of Bilateral Testes, Open Approach (ICD-10-PCS; 2020-05-12)
DX: C64.1 Malignant neoplasm of right kidney, except renal pelvis (principal); C79.82 Secondary malignant neoplasm of genital organs; N43.3 Hydrocele, unspecified; N40.1 Benign prostatic hyperplasia with lower urinary tract symptoms; I12.9 Hypertensive chronic kidney disease with stage 1 through stage 4 chronic kidney disease, or unspecified chronic kidney disease; N18.9 Chronic kidney disease, unspecified; G89.29 Other chronic pain; M54.9 Dorsalgia, unspecified; Z79.52 Long term (current) use of systemic steroids; Z79.899 Other long term (current) drug therapy; Z88.2 Allergy status to sulfonamides; Z88.5 Allergy status to narcotic agent; Z90.5 Acquired absence of kidney
CPT/HCPCS: 88305; J0690; J1100; J1580; J2405; J2704; J3010; J3370; S0020

== ENCOUNTER 2020-07-19 13:54 | Outpatient (CLI) | payer MEDICARE ==
--- NOTE | 2020-07-19 14:28 | ULT ---
ULTRASOUND DOPPLER DUPLEX VENOUS RIGHT LOWER EXTREMITY: DATE: 07/19/2020 HISTORY: Right lower extremity pain and swelling in 85-year-old male TECHNIQUE: Grayscale, color-flow, and spectral analysis, of major veins of right lower extremity. FINDINGS: There is demonstration of blood flow with normal compressibility, of the right common femoral, profun da femoral, greater saphenous, femoral, popliteal, and posterior tibial, veins. There is edema in the soft tissues distal to the knee. IMPRESSION: 1. No deep venous thrombosis of right lower extremity. 2. Soft tissue edema in the right calf.
== END 2020-07-19 13:55 | disposition home or self-care (01) ==
LOC: BICULT 13:54
PROVIDERS: ATTEND Urology
DX: R60.0 Localized edema (principal); C79.82 Secondary malignant neoplasm of genital organs

== ENCOUNTER 2020-12-01 12:37 | Outpatient (CLI) | payer MEDICARE | END 2020-12-01 12:38 | disposition home or self-care (01) | LOC: CT 12:37 | PROVIDERS: ATTEND Internal Medicine Hematology & Oncology | DX: C61 Malignant neoplasm of prostate (principal); C79.51 Secondary malignant neoplasm of bone; D50.0 Iron deficiency anemia secondary to blood loss (chronic); N18.9 Chronic kidney disease, unspecified; D63.1 Anemia in chronic kidney disease; R59.0 Localized enlarged lymph nodes; R91.8 Other nonspecific abnormal finding of lung field | CPT/HCPCS: 74176 ==

== ENCOUNTER 2020-12-06 10:56 | Outpatient (CLI) | payer MEDICARE | END 2020-12-06 10:57 | disposition home or self-care (01) | LOC: CT 10:56 → NM 10:57 | PROVIDERS: ATTEND Internal Medicine Hematology & Oncology | DX: C61 Malignant neoplasm of prostate (principal); C79.51 Secondary malignant neoplasm of bone; D50.0 Iron deficiency anemia secondary to blood loss (chronic); N18.9 Chronic kidney disease, unspecified; D63.1 Anemia in chronic kidney disease | CPT/HCPCS: 78306; A9503 ==

== ENCOUNTER 2020-12-29 10:34 | Outpatient (CLI) | payer MEDICARE | END 2020-12-29 10:35 | disposition home or self-care (01) | LOC: BICULT 10:34 | PROVIDERS: ATTEND Urology | DX: C64.1 Malignant neoplasm of right kidney, except renal pelvis (principal); C79.82 Secondary malignant neoplasm of genital organs; N18.9 Chronic kidney disease, unspecified; N28.89 Other specified disorders of kidney and ureter; Z90.5 Acquired absence of kidney | CPT/HCPCS: 76770 ==

== ENCOUNTER 2021-02-22 13:58 | Outpatient (CLI) | payer MEDICARE | END 2021-02-22 13:59 | disposition home or self-care (01) | LOC: ULT 13:58 | PROVIDERS: ATTEND Internal Medicine Nephrology | DX: N18.5 Chronic kidney disease, stage 5 (principal); N28.89 Other specified disorders of kidney and ureter | CPT/HCPCS: 76770 ==

== ENCOUNTER 2021-09-11 17:27 | Emergency (ER) | payer MEDICARE ==
[2021-09-11 18:25] LABS: Hemoglobin 10.7 g/dL (14.0-18.0); Mean Corpuscular HGB CONC 33.3 g/dL (32.0-36.0); Mean Corpuscular Hemoglobin 33.5 pg (27.0-31.0); Mean Platelet Volume 6.4 fL (7.4-10.4); Platelet Count 197 thou/uL (130-400); RBC Distribution Width 13.2 % (11.5-14.5); White Blood Cell (WBC) Count 11.6 thou/uL (4.8-10.8)
[2021-09-11 18:42] LABS: Band 29 % (5-11); Lymphocytes 8 % (21-51); MDiff Complete? YES; Macrocytosis SLIGHT = 6-15 cells (100X) (0-5/hpf); Monocytes 2 % (0-10); Neutrophil 61 % (42-75); Platelet Morphology Comment Appears Adequate; Polychromasia SLIGHT = 2-3 cells (100X) (0-2/hpf)
[2021-09-11 18:43] LABS: ALT (SGPT) 18 U/L (8-55); AST (SGOT) 18 U/L (5-34); Albumin 3.9 g/dL (3.4-4.8); Alkaline Phosphatase 79 U/L (40-110); Anion Gap 22 mmol/L (10-20); BUN (Urea Nitrogen) 119 mg/dL (8.4-25.7); Bilirubin, Total 0.4 mg/dL (0.2-1.2); Calc. Creatinine Clearance 0 mL/min (70-130); Calcium 8.9 mg/dL (7.8-10.44); Carbon Dioxide 15 mmol/L (23-31); Chloride 109 mmol/L (98-107); Globulin 3.1 g/dL (2.4-3.5); Glucose 137 mg/dL (83-110); Magnesium 2.2 mg/dL (1.6-2.6); Potassium 5.9 mmol/L (3.5-5.1); Sodium 140 mmol/L (136-145)
[2021-09-11] MEDS ORDERED: Lorazepam 2 MG/ML VIAL ONE (19:56)
== END 2021-09-11 21:34 | disposition home or self-care (01) ==
LOC: ERS 17:27
DX: T40.3X1A Poisoning by methadone, accidental (unintentional), initial encounter (principal); I10 Essential (primary) hypertension; Z87.891 Personal history of nicotine dependence; Z79.899 Other long term (current) drug therapy
CPT/HCPCS: 36415; 80053; 83735; 85025; 93005; 96374; J2060